=== PATIENT | male | born 1990 | race Caucasian/White ===

== ENCOUNTER → 2018-12-28 | Outpatient (CLI) | payer BC, OTHER ==
--- NOTE | 2018-12-28 11:56 | RAD ---
EXAM DESCRIPTION: Shoulder,Right 2 or More Views CLINICAL HISTORY: M25.511, M25.521 COMPARISON: None Available. TECHNIQUE: Four views of the right shoulder. FINDINGS: There is adequate internal and external rotation. Normal alignment on transaxillary and transscapular Y views. There is no fracture or dislocation. There are no significant degenerative changes observed. AC joint appears intact. No focal bone lesion. IMPRESSION: Negative for fracture or dislocation. Electronically signed by: Nicola Evans MD 12/28/2018 11:53 AM CDT
--- NOTE | 2018-12-28 11:58 | RAD ---
EXAM DESCRIPTION: Elbow,Right 3 Views CLINICAL HISTORY: M25.511, M25.521 COMPARISON: None Available. TECHNIQUE: AP, Lateral, and Oblique FINDINGS: Three-view right elbow shows no fracture or dislocation. No displacement of the distal humeral fat pads. There is no bone lesion. Dorsal olecranon spurring is seen. There are no significant arthritic changes. There is no radiopaque foreign body. IMPRESSION: Spurring at the olecranon process. Electronically signed by: Nicola Evans MD 12/28/2018 11:55 AM CDT
== END ==
LOC: RAD 09:13
PROVIDERS: ATTEND Orthopaedic Surgery
DX: M25.511 Pain in right shoulder (principal); M25.521 Pain in right elbow; M77.8 Other enthesopathies, not elsewhere classified

== ENCOUNTER → 2018-12-29 | Outpatient (CLI) | payer BC | LOC: LAB.O 10:29 | PROVIDERS: ATTEND Orthopaedic Surgery | DX: Z01.818 Encounter for other preprocedural examination (principal) ==

== ENCOUNTER 2019-01-22 05:40 | Day surgery (SDC) | payer BC ==
--- NOTE | 2019-01-21 08:25 | HP ---
CHIEF COMPLAINT: Right ulnar nerve entrapment. HISTORY OF PRESENT ILLNESS: Cheko is a 28-year-old male with a history of pain, numbness and weakness in the right hand secondary to ulnar nerve entrapment. He has had this going on for quite a while and he is unsure of the duration. He has been unable to get relief with conservative measures and, therefore, has requested operative intervention. After discussing the risks, benefits and alternatives to operative intervention, he has given informed consent for ulnar nerve transposition. PAST SURGICAL HISTORY: 1. Shoulder arthroscopy. MEDICATIONS: 1. Naprosyn. ALLERGIES: NO KNOWN DRUG ALLERGIES. CODE STATUS: Full code. IMMUNIZATIONS: Up to date. FAMILY HISTORY: None pertinent to today's complaint. SOCIAL HISTORY: The patient does not smoke or use any illicit drugs. He does drink on occasion. REVIEW OF SYSTEMS: Negative except as indicated in the History of Present Illness. PHYSICAL EXAMINATION: VITAL SIGNS: Blood pressure 169/123. Pulse 94. Height 6'2". Weight 235 pounds. MENTAL STATUS: The patient is awake, alert, and is able to give a good history and participate in the physical. The patient is oriented to person, place and time. SKIN: Normal tone and turgor. MUSCULOSKELETAL: He has positive Tinel's at the elbow and decreased strength relative to the contralateral side in abduction of the digits. He has some subjective numbness in the fifth digit and the most distal portion of the fourth digit. He has intact channeler strength. He has no significant thenar or hypothenar atrophy. Range of motion of the elbow is normal. ASSESSMENT: 1. Ulnar nerve entrapment. PLAN: The plan at this point is ulnar nerve transposition. We have discussed the risks, benefits, and alternatives to that and the patient has given informed consent. #[id number] [facility]
[2019-01-22] MEDS ORDERED: ceFAZolin SODIUM 1 GM VIAL ONE (06:01)
[2019-01-22] MEDS ORDERED: SODIUM CHL 0.9% 50ML MIN-BAG+ 50 ML IVPB ONE (06:01)
[2019-01-22] MEDS ORDERED: LACTATED RINGERS 1,000 ML ONE (06:01)
[2019-01-22] MEDS ORDERED: ACETAMINOPHEN IV 1000MG 100 ML ONE (06:27)
[2019-01-22] MEDS ORDERED: fentaNYL CITRATE INJ 50 MCG/ML AMP ONE (06:27)
[2019-01-22] MEDS ORDERED: MIDAZOLAM INJ 2 MG/2 ML VIAL ONE (06:27)
[2019-01-22] MEDS ORDERED: LACTATED RINGERS 1,000 ML IVS ONE ×2 (06:42→09:54)
[2019-01-22] MEDS ORDERED: ONDANSETRON INJ 4 MG/2 ML VIAL ONE (07:00)
[2019-01-22] MEDS ORDERED: PROPOFOL 200 MG/20 ML VIAL IV ONE (07:00)
[2019-01-22] MEDS ORDERED: raNITIdine HCL INJ 25 MG/ML VIAL ONE (07:00)
[2019-01-22] MEDS ORDERED: LIDOCAINE 1% 10 ML VIAL INJ ONE (07:00)
[2019-01-22] MEDS ORDERED: KETOROLAC TROMETHAMINE INJ 30 MG/ML VIAL ONE (07:00)
[2019-01-22] MEDS ORDERED: DEXAMETHASONE INJ 10 MG/ML VIAL ONE (07:00)
[2019-01-22] MEDS ORDERED: KETAMINE HCL 100 MG/ML VIAL ONE (07:15)
[2019-01-22] MEDS ORDERED: HYDROmorphone HCL INJ 2 MG/ML VIAL ONE ×2 (07:16→10:02)
[2019-01-22] MEDS ORDERED: VANCOMYCIN HCL INJ 1,000 MG VIAL IVPB ONE (07:34)
[2019-01-22] MEDS: BUPIVACAINE LIPOSOME 13.3 MG/ML VIAL INJ ONE ×4 (07:41→09:07)
[2019-01-22] MEDS: BUPIVACAINE 0.5% 30 ML VIAL INJ ONE ×2 (07:41→09:07)
[2019-01-22] MEDS: ceFAZolin SODIUM 1 GM VIAL ONE ×2 (07:41→09:13)
[2019-01-22] MEDS: VANCOMYCIN HCL INJ 1,000 MG VIAL IVPB ONE ×2 (07:42→09:13)
[2019-01-22] MEDS ORDERED: SODIUM CHLORIDE 0.9% 250ML 250 ML ONE (07:44)
[2019-01-22] MEDS ORDERED: HYDROmorphone HCL INJ 2 MG/ML VIAL IV ONE ×2 (10:07→10:17)
[2019-01-22] MEDS ORDERED: HYDROcodone 5MG/APAP 325MG 1 EA TAB ONE (10:29)
[2019-01-22 11:10] VITALS: O2SAT 95
[2019-01-22 11:47] VITALS: BP 133/91; TEMP 97.3
--- NOTE | 2019-01-27 10:31 | OP ---
DATE OF PROCEDURE: 01/22/19 PREOPERATIVE DIAGNOSIS: 1. Ulnar nerve compression. POSTOPERATIVE DIAGNOSIS: 1. Ulnar nerve compression. PROCEDURE: 1. Ulnar nerve transposition. SURGEON: Tutu Luna MD. HOP GROWER: Nicholas Seo CST, SA-C. ANESTHESIA: General anesthesia. COMPLICATIONS: None. FINDINGS: Severe compression of the ulnar nerve and subluxation over the medial epicondyle of the humerus. INDICATION: Mr. Appiah has a history of issues associated with his ulnar nerve which have included numbness and increasing weakness. Because of that, he has requested operative intervention. After discussing the risks, benefits and alternatives to operative intervention, the patient gave informed consent for ulnar nerve transposition. PROCEDURE: The patient was brought to the Operating Room and placed in the supine position. General anesthesia was induced and the patient's arm was sterilely prepped and draped. Following prepping and draping, an incision was made over the elbow about midway between the medial epicondyle and the olecranon. Blunt dissection was carried down and the nerve was identified proximally. Vessel loop was passed around the nerve, which was used to manipulate the nerve and the nerve was sequentially freed from proximal to distal. There was obvious flattening of the nerve at the area of the cubital tunnel. After all areas where the nerve was tethered were released, the nerve was transposed medial to the medial epicondyle. The wound was very thoroughly irrigated and the fascial layer was reapproximated with the medial epicondyle, making sure that the nerve was not entrapped in that area. The elbow was taken through a range of motion and there was no subluxation of the nerve. Following that, the wound was again very thoroughly irrigated and closed with layers. Sterile dressings were placed. The patient was awoken from anesthesia and taken to Recovery. POSTOPERATIVE PLAN: The patient will be doing range of motion of the digits. He will followup with us in two days at which time we will begin range of motion of the elbow. #[id number] [facility]
== END 2019-01-22 11:40 | disposition home or self-care (01) ==
LOC: AMB 05:40
PROVIDERS: ATTEND Orthopaedic Surgery
DX: G56.21 Lesion of ulnar nerve, right upper limb (principal); Z79.899 Other long term (current) drug therapy
CPT/HCPCS: 01710; 36415; 64718; 80307; 85025; J0690; J1100; J1170; J1885; J2250; J2405; J2780; J3010; J3370; J3490; J7050; J7120